=== PATIENT | female | born 2005 | race Caucasian/White ===

== ENCOUNTER 2024-05-02 21:24 | Emergency (ER) | payer SELFPAY ==
[~2024-05-02] VITALS: Ht 160 cm; Wt 86.6 kg
[2024-05-02] MEDS: ONDANSETRON HCL INJ 2MG/ML 2ML 2 MG/ML VIAL IV STA (23:15)
[2024-05-02] MEDS: DEXAMETHASONE SOD PHOS INJ 4 MG/ML SDV IV ONE (23:16)
[2024-05-02] MEDS: SODIUM CHLORIDE 0.9% 1000ML 1,000 ML IV ONE (23:17)
[2024-05-03] MEDS ORDERED: IOPAMIDOL 370 MG/ML 100 ML INFUS..BTL INJ ONE (00:44)
[2024-05-03] MEDS ORDERED: CEFTRIAXONE 1 GM VIAL ONE (01:42)
[2024-05-03] MEDS ORDERED: SODIUM CHLORIDE 0.9% 100 ML ONE (01:42)
[2024-05-03] MEDS: CEFTRIAXONE 2 GM in SODIUM CHLORIDE 0.9% 100 ML IV ONE (01:52)
[2024-05-03 02:14] VITALS: PULSE 70; RESP 18; TEMP 98.4
[2024-05-03 03:25] VITALS: BP 135/88; PULSE 70; RESP 18; TEMP 98.4; O2SAT 98
== END 2024-05-03 03:25 | disposition other institution (70) ==
LOC: FSED 21:32
DX: R51.9 Headache, unspecified (principal); B27.90 Infectious mononucleosis, unspecified without complication; R74.8 Abnormal levels of other serum enzymes; D73.5 Infarction of spleen; R16.1 Splenomegaly, not elsewhere classified; D72.829 Elevated white blood cell count, unspecified
CPT/HCPCS: 70450; 74177; 76705; 80053; 80307; 81003; 81025; 85025; 86308; 87040; 96374; 99284; J0696 ×2; J1100; J2405; J7030; J7050; Q9967

== ENCOUNTER 2024-10-31 01:03 | Emergency (ER) | payer SELFPAY ==
[~2024-10-31] VITALS: Ht 160 cm; Wt 90.3 kg
[2024-10-31 01:08] VITALS: PULSE 108; RESP 18; TEMP 99.9
[2024-10-31] MEDS: KETOROLAC TROMETHAMINE 30 MG/ML VIAL IV STA (01:56)
[2024-10-31] MEDS: ACETAMINOPHEN 325 MG TAB PO ONE (01:56)
[2024-10-31] MEDS: SODIUM CHLORIDE 0.9% 1000ML 1,000 ML IV ONE (01:57)
[2024-10-31] MEDS ORDERED: IOPAMIDOL 370 MG/ML 100 ML INFUS..BTL INJ ONE (02:46)
[2024-10-31 03:30] VITALS: BP 123/81; PULSE 92; RESP 18; TEMP 98.8; O2SAT 95
== END 2024-10-31 03:30 | disposition home or self-care (01) ==
LOC: FSED 01:10
DX: M79.89 Other specified soft tissue disorders (principal); B27.90 Infectious mononucleosis, unspecified without complication; R07.89 Other chest pain; M79.18 Myalgia, other site; Z11.52 Encounter for screening for COVID-19
CPT/HCPCS: 0223U; 71046; 74177; 80053; 80076; 81003; 81025; 85025; 85379; 86308; 87400; 96374; 99284; J1885; J7030; Q9967